=== PATIENT | male | born 1995 | race Hispanic/Latino ===

== ENCOUNTER 2025-06-20 12:52 | Emergency (ER) | payer SELFPAY ==
[~2025-06-20] VITALS: Ht 188 cm; Wt 85.7 kg
--- NOTE | 2025-06-20 13:00 | NUR ---
AT THIS TIME DECLINES VENOUS ACCESS OR VENIPUNCTURE. STATES HAS GREAT FEAR OF NEEDLES. PATIENT ADVISED ON PURPOSE OF VENOUS ACCESS/VENIPUNCTURE.
--- NOTE | 2025-06-20 13:02 | NUR ---
PATIENT VOICES REASON FOR EMTIONAL DISTRESS IS RELATED TO A RELATIONSHIP HE DESIRES TO BE IN. [facility] HAS NOT BEEN ABLE TO ESTABLISH RELATIONSHIP WITH THIS INDIVIDUAL.
[2025-06-20 13:06] VITALS: BP 147/83; PULSE 99; RESP 18; TEMP 98; O2SAT 97
== END 2025-06-20 14:13 | disposition left against medical advice (07) ==
LOC: EDH 12:52
DX: R55 Syncope and collapse (principal); Z53.21 Procedure and treatment not carried out due to patient leaving prior to being seen by health care provider